=== PATIENT | female | born 2000 | race Two or more races ===

== ENCOUNTER 2024-09-07 13:41 | Emergency (ER) | payer BC ==
[~2024-09-07] VITALS: Ht 175.3 cm; Wt 73.9 kg
[2024-09-07] MEDS ORDERED: NEXIUM40 M1 PO (15:13)
[2024-09-07] MEDS ORDERED: RINVOQ30 MG PO (15:13)
[2024-09-07] MEDS ORDERED: ALDACTONE25 MG PO (15:13)
[2024-09-07] MEDS ORDERED: BUDESONIDE 0.5 MG/2 ML AMPUL.NEB IH STA (17:20)
[2024-09-07] MEDS ORDERED: 0.9 % SODIUM CHLORIDE 1,000 ML IV STA (17:22)
[2024-09-07] MEDS ORDERED: CEFTRIAXONE SODIUM 1,000 MG VIAL IV STA (17:23)
[2024-09-07] MEDS ORDERED: GUAIFENESIN 200 MG/10 ML BLIST.PACK PO STA (17:24)
[2024-09-07] MEDS ORDERED: LEVALBUTEROL HCL 1.25 MG/3 ML SOLUTION IH SCH (17:30)
[2024-09-07] MEDS ORDERED: IPRATROPIUM BROMIDE 0.5 MG/2.5 ML AMPUL.NEB IH SCH (17:30)
[2024-09-07] MEDS ORDERED: CEFTRIAXONE SODIUM 1,000 MG VIAL ONE (17:33)
[2024-09-07] MEDS ORDERED: GUAIFENESIN 200 MG/10 ML BLIST.PACK PO ONE (17:33)
[2024-09-07] MEDS ORDERED: SUMATRIPTAN SUCCINATE 6 MG/0.5 ML VIAL SUBCUTANEO STA (17:37)
[2024-09-07] MEDS ORDERED: LEVALBUTEROL HCL 1.25 MG/3 ML SOLUTION IH ONE (17:49)
[2024-09-07] MEDS ORDERED: IPRATROPIUM BROMIDE 0.5 MG/2.5 ML AMPUL.NEB IH ONE (17:50)
[2024-09-07] MEDS ORDERED: BUDESONIDE 0.5 MG/2 ML AMPUL.NEB IH ONE (17:50)
[2024-09-07] MEDS ORDERED: SUMATRIPTAN SUCCINATE 6 MG/0.5 ML VIAL SUBCUTANEO ONE (18:00)
[2024-09-07 18:10] LABS: HEMATOCRIT 36.3 % (36.0-45.00); HEMOGLOBIN 12.5 g/dL (12.0-15.00); MEAN CELL VOLUME 84.4 fL (80.00-100.00); MEAN CORPUSCULAR HEMOGLOBIN 29.1 pg (27.00-32.0); MEAN CORPUSCULAR HGB CONC 34.4 g/dl (32.0-36.0); PLATELET COUNT 333 K/uL (150-450)
[2024-09-07 18:26] LABS: CALCIUM 9.9 mg/dL (8.5-10.1); CREATININE SERUM 0.9 mg/dL (0.55-1.02); GFR 76.29; POTASSIUM 3.77 mEq/L (3.5-5.1)
[2024-09-07 20:22] LABS: ABG PH 7.391 (7.35-7.45); ABG PO2 81.6 mmHg (80-100); ABG pCO2 33.5 mmHg (35-45); BASE EXCESS -4.1 mmol/l; BICARBONATE 19.9 mmol/l (23-25); SaO2 95.7 %; Tco2 20.9 mmol/l
[2024-09-07 20:23] LABS: allen test SATISFACTORY; o2 21 %; puncture site RADIAL RIGHT
== END 2024-09-07 20:06 | disposition home or self-care (01) ==
LOC: ER 13:44
PROVIDERS: General Practice
DX: J11.1 Influenza due to unidentified influenza virus with other respiratory manifestations (principal); R05.8 Other specified cough; Z88.2 Allergy status to sulfonamides; Z88.8 Allergy status to other drugs, medicaments and biological substances; Z20.822 Contact with and (suspected) exposure to COVID-19